=== PATIENT | female | born 1975 | race Caucasian/White ===

== ENCOUNTER 2017-07-07 09:21 | Day surgery (SDC) | payer BC ==
[~2017-07-07 09:21] MED LIST: Lactated Ringers 1,000 ML IV SCH
[2017-07-07] MEDS ORDERED: Propofol 200 MG/20 ML SDV ONE ×2 (10:29→11:38)
[2017-07-07] MEDS ORDERED: fentaNYL 100 MCG/2 ML SDV ONE (10:30)
[2017-07-07 12:55] VITALS: BP 111/65
--- NOTE | 2017-07-07 14:42 | OR ---
PREOPERATIVE DIAGNOSIS: Blood in stools, history of carcinoid tumor of appendix. POSTOPERATIVE DIAGNOSIS: Elongated tortuous colon, otherwise normal exam, internal and external hemorrhoids. PROCEDURE PROPOSED: Total flexible colonoscopy. PROCEDURE DONE: Total flexible colonoscopy. 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 She also had some recent bright red blood per rectum couple weeks ago. It was felt that she needs to proceed with colonoscopy, especially with her history of carcinoid. TECHNIQUE: The patient was brought to the endoscopy suite, placed in left lateral decubitus position. She was sedated per [employer] with MAC anesthesia. The flexible video colonoscope was then passed transanally and under visualization advanced to the cecum. Examination revealed normal ascending, transverse, descending, sigmoid, and rectal colon. There was no evidence of any diverticulosis, polyps, colitis. She did have somewhat of an elongated colon with a couple extra twists making the examination moderately difficult. She was noted to have internal and external hemorrhoids which was most likely the source of her bleeding. She, however, was not bleeding from them at the time of the exam, but she will be treated for them. She tolerated the entire procedure well. FINAL IMPRESSION: 1. Normal colonoscopic exam with tortuous colon. 2. Internal and external hemorrhoids, likely source of bleeding. PLAN: Anusol-HC suppositories nightly for 10-12 nights in a row. I feel she could wait 10 years before she needs a repeat colonoscopy. SCM: 07/07/2017 11:56:10 MODL: 07/07/2017 12:20:49 /[id number]
== END 2017-07-07 12:50 | disposition home or self-care (01) ==
LOC: VM.SDS 09:21
PROVIDERS: ATTEND Surgery
DX: K64.8 Other hemorrhoids (principal); K64.4 Residual hemorrhoidal skin tags; K63.89 Other specified diseases of intestine; D64.9 Anemia, unspecified; E06.3 Autoimmune thyroiditis; E78.5 Hyperlipidemia, unspecified; E55.9 Vitamin D deficiency, unspecified; G89.29 Other chronic pain; M54.5 Low back pain; F32.9 Major depressive disorder, single episode, unspecified; F41.1 Generalized anxiety disorder; J01.00 Acute maxillary sinusitis, unspecified; N97.9 Female infertility, unspecified; Z79.51 Long term (current) use of inhaled steroids; Z79.899 Other long term (current) drug therapy; Z98.890 Other specified postprocedural states
CPT/HCPCS: J2704; J3010; J7120